=== PATIENT | female | born 1975 | race Caucasian/White ===

== ENCOUNTER 2017-07-03 12:14 | Inpatient (IN) | payer MEDICARE ==
[~2017-07-03] VITALS: Ht 160 cm; Wt 81.4 kg
[2017-07-03] MEDS ORDERED: COUMADIN4 M2 PO (13:42)
[2017-07-03] MEDS ORDERED: LASIX40 MG PO (13:43)
[2017-07-03] MEDS ORDERED: TOPAMAX50 MG PO (13:44)
[2017-07-03] MEDS ORDERED: DOXEPIN50 MG PO (13:45)
[2017-07-03] MEDS ORDERED: EFFEXOR XR150 MG PO (13:47)
[2017-07-03] MEDS ORDERED: KLOR-CON 1010 ME1 PO (13:49)
[2017-07-03] MEDS ORDERED: PROMETHAZINE25 M1 PO (13:50)
[2017-07-03] MEDS ORDERED: VALACYCLOVIR H500 M1 PO (13:51)
[2017-07-03] MEDS ORDERED: RISPERDAL0.5 MG PO (13:52)
[2017-07-03] MEDS ORDERED: ROPINIROLE HYDRO1 MG PO (13:54)
[2017-07-03] MEDS ORDERED: ROPINIROLE HYDRO2 M2 PO (13:55)
[2017-07-03 14:35] LABS: BASO # 0.1 10*3/uL (0.0-0.1); BASO % 0.8 % (0.0-1.0); EOS # 0.2 10*3/uL (0.0-0.4); HEMATOCRIT 40.1 % (37.0-47.0); HEMOGLOBIN 13.7 g/dl (12.0-16.0); LYMPH # 1.4 10*3/uL (1.3-4.4); LYMPH % 24.2 % (27.0-41.0); MEAN CELL VOLUME 95.2 fl (81.0-99.0); MEAN CORPUSCULAR HGB 32.5 pg (27.0-31.0); MEAN CORPUSCULAR HGB CONC 34.2 g/dl (33.0-37.0); MEAN PLATELET VOLUME 8.5 fl (9.6-12.3); MONO # 0.3 10*3/uL (0.1-1.0); MONO % 5.2 % (3.0-9.0); NEUT % 66.6 % (47.0-73.0); PLATELET COUNT AUTOMATED 339 10*3/uL (130-400); RED BLOOD COUNT 4.21 10*6/uL (4.10-5.10); RED CELL DISTRI WIDTH 12.2 % (0-14.5); WHITE BLOOD COUNT 5.9 10*3/uL (4.8-10.8)
[2017-07-03 14:50] LABS: INTERNATIONAL NORM RATIO 1.8 (2.0-3.5)
[2017-07-03 14:51] LABS: ALBUMIN 3.9 gm/dl (3.1-4.5); ALKALINE PHOSPHATASE 192 U/L (45-117); BUN 12 mg/dl (7-24); CHLORIDE 106 mmol/L (98-107); CREATININE 0.77 mg/dL (0.55-1.02); POTASSIUM 3.1 mmol/L (3.5-5.1); SGOT/AST 21 IU/L (3-35); SGPT/ALT 60 U/L (12-78); SODIUM 140 mmol/L (136-145); TOTAL PROTEIN 7.4 gm/dL (6.4-8.2)
[2017-07-03 14:58] LABS: ETHYL ALCOHOL < 3.0 mg/dl (<3)
[2017-07-03 15:33] LABS: BILIRUBIN NEGATIVE (NEGATIVE); BLOOD TRACE-INTACT (NEGATIVE); CLARITY CLEAR (CLEAR); COLOR YELLOW (YELLOW); GLUCOSE NEGATIVE (NEGATIVE); KETONE NEGATIVE (NEGATIVE); LEUKO ESTERASE NEGATIVE (NEGATIVE); NITRITE NEGATIVE (NEGATIVE); PH 5.5 (5.0-9.0); UROBILINOGEN 0.2 E.U./dl (0.2-1.0)
[2017-07-03 15:40] LABS: URINE AMPHETAMINES < 1000 (1000ng/ml); URINE BARBITURATES > 200 (200ng/ml); URINE BENZODIAZEPINES > 200 (200ng/ml); URINE CANNABINOIDS (THC) < 50 (50ng/ml); URINE COCAINE < 300 (300ng/ml); URINE METHADONE < 300 (300ng/ml); URINE OPIATES < 300 (300ng/ml)
[2017-07-03 15:45] LABS: URINE PHENCYCLIDINE < 25 (25ng/ml)
[2017-07-03 15:57] LABS: HYALINE CAST 21-30
[2017-07-03 15:59] LABS: BACTERIA 1+; MUCOUS 1+
[2017-07-03 16:00] VITALS: BP 112/71
[2017-07-03 20:00] VITALS: BP 96/70
[2017-07-04 06:27] LABS: INTERNATIONAL NORM RATIO 1.7 (2.0-3.5)
[2017-07-04 06:51] LABS: ALBUMIN 3.9 gm/dl (3.1-4.5); ALKALINE PHOSPHATASE 176 U/L (45-117); BUN 14 mg/dl (7-24); CHLORIDE 99 mmol/L (98-107); CREATININE 0.68 mg/dL (0.55-1.02); POTASSIUM 3.2 mmol/L (3.5-5.1); SGOT/AST 35 IU/L (3-35); SGPT/ALT 53 U/L (12-78); SODIUM 136 mmol/L (136-145); TOTAL PROTEIN 6.9 gm/dL (6.4-8.2)
[2017-07-04 08:00] VITALS: BP 92/57
[2017-07-04 12:38] VITALS: BP 106/75
[2017-07-04 20:00] VITALS: BP 128/77
[2017-07-05] VITALS: BP 104/57
[2017-07-05 06:25] LABS: INTERNATIONAL NORM RATIO 1.9 (2.0-3.5)
[2017-07-05 07:52] VITALS: BP 152/90
[2017-07-05 13:15] VITALS: BP 108/66
[2017-07-05 16:37] VITALS: BP 105/67
[2017-07-05 20:25] VITALS: BP 104/59
[2017-07-06] VITALS: BP 100/65
[2017-07-06 07:34] LABS: INTERNATIONAL NORM RATIO 1.5 (2.0-3.5)
[2017-07-06 08:00] VITALS: BP 95/65
[2017-07-06 12:00] VITALS: BP 110/67
[2017-07-06] MEDS ORDERED: COUMADIN5 M2 PO (14:28)
[2017-07-06] MEDS ORDERED: ATARAX,VISTARIL50 MG PO (14:28)
[2017-07-06] MEDS ORDERED: METHOCARBAMOL750 M1 PO (15:32)
[2017-07-06] MEDS ORDERED: NICOTROL10 MG INH (15:32)
== END 2017-07-06 18:00 | disposition home or self-care (01) | DRG 897 ==
LOC: 4E 12:14
PROVIDERS: Internal Medicine; Internal Medicine Hospice and Palliative Medicine
DX: F13.239 Sedative, hypnotic or anxiolytic dependence with withdrawal, unspecified (principal); F11.23 Opioid dependence with withdrawal; D68.51 Activated protein C resistance; D68.59 Other primary thrombophilia; F41.1 Generalized anxiety disorder; E83.51 Hypocalcemia; E87.6 Hypokalemia; G43.909 Migraine, unspecified, not intractable, without status migrainosus; D72.810 Lymphocytopenia; R73.9 Hyperglycemia, unspecified; G47.00 Insomnia, unspecified; E66.09 Other obesity due to excess calories; F32.9 Major depressive disorder, single episode, unspecified; Z72.0 Tobacco use; Z68.31 Body mass index [BMI] 31.0-31.9, adult; Z71.6 Tobacco abuse counseling; Z79.899 Other long term (current) drug therapy; Z86.718 Personal history of other venous thrombosis and embolism; Z86.73 Personal history of transient ischemic attack (TIA), and cerebral infarction without residual deficits; Z95.828 Presence of other vascular implants and grafts; Z90.49 Acquired absence of other specified parts of digestive tract; Z90.710 Acquired absence of both cervix and uterus; Z83.49 Family history of other endocrine, nutritional and metabolic diseases; Z82.49 Family history of ischemic heart disease and other diseases of the circulatory system; Z88.0 Allergy status to penicillin; Z88.2 Allergy status to sulfonamides